=== PATIENT | male | born 1990 | race Hispanic/Latino ===

== ENCOUNTER 2019-11-12 13:54 | Emergency (ER) | payer OTHER ==
--- NOTE | 2019-11-12 15:08 | CT ---
CT lumbar spine without contrast: HISTORY: Right-sided paraspinal lumbar pain after lifting a heavy object. COMPARISON: No prior CT exams of the lumbar spine available FINDINGS: The visualized retroperitoneal structures demonstrate a normal nonenhanced CT appearance. No fracture or subluxation is seen involving the lumbar spine. A unilateral left-sided pars defect is seen at L5. L1-2: No significant central canal or neural foraminal narrowing is seen. L2-3: No significant central canal or neural foraminal narrowing is seen. L3-4: No significant central canal or neural foraminal narrowing is seen. L4-5: There is a mild broad-based disc osteophyte complex with small central disc protrusion. This re sults in slight effacement of the ventral aspect of the thecal sac. Neural foramina are patent. L5-S1: Mild broad-based disc osteophyte complex is present. There is no central canal or neural lala inal narrowing. There is suggestion of a conjoined left S1 and S2 nerve root. IMPRESSION: 1. No fracture or subluxation is seen involving the lumbar spine. 2. 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 3. Mild disc osteophyte complexes at the L4-5 and L5-S1 levels without central canal or neural forami nal narrowing.
== END 2019-11-12 15:42 | disposition home or self-care (01) ==
LOC: NAV ERS 13:54
DX: S39.012A Strain of muscle, fascia and tendon of lower back, initial encounter (principal); M25.78 Osteophyte, vertebrae; X50.0XXA Overexertion from strenuous movement or load, initial encounter
CPT/HCPCS: 72131